=== PATIENT | female | born 1985 | race Caucasian/White ===

== ENCOUNTER 2016-10-08 16:30 | Emergency (ER) | payer BC ==
[~2016-10-08] VITALS: Ht 175.3 cm; Wt 61.4 kg
[~2016-10-08 16:30] MED LIST: ABILIFY2 MG PO; ABX FOR ACNE; AMBIEN5 MG PO; Augmentin PO; BUSPAR15 MG PO; Buspar PO; CELEXA20 MG PO; CHILD ASPIRIN81 M1 PO; CIPRO500 MG PO; COUMADIN10 MG PO; COUMADIN7.5 MG PO; Coumadin,Jantoven PO; ENDOCET 5-3251 EACH PO; EXCEDRIN MIGRA1 EAC3 PO; FLAGYL500 MG PO; FOLIC ACID1 MG PO; HEPARIN SO25000 UNIT SQ; HEPARIN SO5000 UNITS SC; Habitrol,Nicoderm CQ TD; IRON325 M1 PO; LOVENOX60 MG/0.6 SC; Lovenox SC; PARAGARD T 3801 EAC1 IY; PRENATAL TABLE1 EAC3 PO; PROZAC20 MG PO; ROBITUSSIN100 MG/5 M PO; ZITHROMAX250 MG PO; ZOLOFT50 MG PO
[2016-10-08 16:48] VITALS: BP 140/80
[2016-10-08] MEDS ORDERED: FLEXERIL10 MG PO (17:40)
[2016-10-08] MEDS ORDERED: ZOFRAN ODT4 MG PO (17:40)
== END 2016-10-08 17:46 | disposition home or self-care (01) ==
LOC: EME 16:30
DX: S06.0X0A Concussion without loss of consciousness, initial encounter (principal); Y04.2XXA Assault by strike against or bumped into by another person, initial encounter; D68.9 Coagulation defect, unspecified; Z86.711 Personal history of pulmonary embolism; Z87.891 Personal history of nicotine dependence
CPT/HCPCS: 99281; 99283

== ENCOUNTER 2017-02-25 14:33 | Emergency (ER) | payer BC ==
[~2017-02-25] VITALS: Ht 175.3 cm; Wt 64.1 kg
[~2017-02-25 14:33] MED LIST changes: +FLEXERIL10 MG PO; +ZOFRAN ODT4 MG PO
[2017-02-25 15:42] LABS: HEMATOCRIT 40.7 % (36.0-46.0); MCH 33.9 PG (29.0-34.0); MCHC 34.2 G/DL (30.0-36.0); MCV 99.3 FL (83-99); MEAN PLAT.VOLUME 10.1 uM^3 (9.5-12.4); PLATELET COUNT 321 K/uL (156-360); RBC DIS.WIDTH-SD 44.2 % (39-53); WHITE BLOOD COUNT 7.1 K/uL (4.1-10.2)
[2017-02-25 15:52] LABS: CHLORIDE 108 mEq/L (99-109); SODIUM 138 mEq/L (136-147)
[2017-02-25 15:54] LABS: GLUCOSE 94 mg/dL (70-99)
[2017-02-25 15:55] LABS: ANION GAP 9 MEQ/L (2-14)
[2017-02-25 15:56] LABS: TOTAL BILIRUBIN 0.6 mg/dL (0.0-1.0)
[2017-02-25 15:57] LABS: ALKALINE PHOSPHATASE 58 IU/L (3-129)
[2017-02-25 15:58] LABS: GFR ESTIMATE (CALCULATED) > 59 mL/min/
[2017-02-25 15:59] LABS: UREA NITROGEN (BUN) 12 mg/dL (9-23)
[2017-02-25 16:01] LABS: LIPASE 17 U/L (1.0-51.0)
[2017-02-25 16:08] LABS: QUANTITATIVE HCG < 4.0 MIU/ML
[2017-02-25 18:04] LABS: ADD MIUA? YES; BILIRUBIN NEGATIVE; BLOOD SMALL; COLOR STRAW ((YELLOW)); GLUCOSE (STRIP) NEGATIVE; KETONES 5; LEUKOCYTES NEGATIVE; NITRITE NEGATIVE; PROTEIN (STRIP) NEGATIVE; SPECIFIC GRAVITY 1.014 (1.000-1.030); UROBILINOGEN 0.2 MG/DL (0.2-1.0)
[2017-02-25 18:10] LABS: BACTERIA NONE SEEN /HPF; EPITHELIAL CELLS RARE /HPF; MUCUS NONE SEEN /LPF; RED BLOOD CELLS 0-5 /HPF (0-5); UCUL ADDED? NO; WHITE BLOOD CELLS 0-5 /HPF (0-5)
[2017-02-25] MEDS ORDERED: COLACE100 MG PO (19:19)
[2017-02-25 20:03] VITALS: BP 122/78
== END 2017-02-25 20:05 | disposition home or self-care (01) ==
LOC: EME 14:33
DX: K59.00 Constipation, unspecified (principal); R14.0 Abdominal distension (gaseous); J45.909 Unspecified asthma, uncomplicated; F41.9 Anxiety disorder, unspecified; F32.9 Major depressive disorder, single episode, unspecified; D68.2 Hereditary deficiency of other clotting factors; Z86.711 Personal history of pulmonary embolism
CPT/HCPCS: 74177; 80053; 81003; 83690; 84702; 85027; 99281; 99285; J7030

== ENCOUNTER 2017-08-28 05:42 | Day surgery (SDC) | payer BC ==
[~2017-08-28] VITALS: Ht 175.3 cm; Wt 58.9 kg
[~2017-08-28 05:42] MED LIST changes: +COLACE100 MG PO; +ESSENTIAL WOMA1 EAC1 PO
[2017-08-28 06:11] VITALS: BP 113/62
[2017-08-28] MEDS ORDERED: IBUPROFEN800 MG PO (08:49)
[2017-08-28] MEDS ORDERED: PERCOCET 5/31 TABLET PO (08:49)
[2017-08-28 11:05] VITALS: BP 135/72
[2017-08-28 11:55] VITALS: BP 125/67
== END 2017-08-28 12:25 | disposition home or self-care (01) ==
LOC: SDC
PROVIDERS: Obstetrics & Gynecology
PROC: 0U5B8ZZ Destruction of Endometrium, Via Natural or Artificial Opening Endoscopic (ICD-10-PCS; principal; 2017-08-28)
PROC: 0U574ZZ Destruction of Bilateral Fallopian Tubes, Percutaneous Endoscopic Approach (ICD-10-PCS; principal; 2017-08-28)
PROC: 0UPD7HZ Removal of Contraceptive Device from Uterus and Cervix, Via Natural or Artificial Opening (ICD-10-PCS; principal; 2017-08-28)
DX: Z30.2 Encounter for sterilization (principal); Z30.432 Encounter for removal of intrauterine contraceptive device; N94.6 Dysmenorrhea, unspecified; N92.0 Excessive and frequent menstruation with regular cycle; N73.6 Female pelvic peritoneal adhesions (postinfective); J45.909 Unspecified asthma, uncomplicated; D68.2 Hereditary deficiency of other clotting factors; F32.9 Major depressive disorder, single episode, unspecified; Z87.891 Personal history of nicotine dependence
CPT/HCPCS: 81025; 86850; 86900; 86901; J0131; J0690; J1100; J1170; J1200; J1885; J2250; J2405; J2710; J3010; J7643; Q0175; S0020